=== PATIENT | male | born 1960 | race Caucasian/White ===

== ENCOUNTER 2021-01-09 10:38 | Day surgery (SDC) | payer BC, SELFPAY ==
[2021-01-03 14:20] VITALS: BMI 34.9
--- NOTE | 2021-01-08 12:24 | HO.ANESPROP2 ---
Documented by User: Kortney Oliver 01/08/21 12:24 HPI - Anesthesia Eval Consult details Narrative: 60yo M for Colonoscopy [facility] Past Medical History Medical History (Updated 01/09/21 @ 12:15 by Bela Raymond) COPD (chronic obstructive pulmonary disease) Elevated cholesterol History of diverticulitis History of panic attacks Inverted T wave Mild aortic insufficiency Moderate aortic stenosis by prior echocardiography Murmur Sleep apnea Surgical History Surgical History H/O colonoscopy Hx of inguinal hernia repair Hx of umbilical hernia repair Social History Social History Are you a primary primary health care nurse to a significant other at home: No Do you presently have visiting nurse or other home services: No Smoking Status: Former smoker Smoked in Last 30 Days: No Smoking Quit Date: 2011 Use of substances other than those prescribed or required for medical reasons: No Have you been hit, kicked, punched, or otherwise hurt by someone within the past year? If so, by whom?: No Advance Directives Information Provided: No Recently lost weight without trying: No Meds Allergies Allergy/AdvReac Type Severity Reaction Status Date / Time No Known Allergies Allergy Verified 01/03/21 14:27 Home Medications Medication Instructions Recorded Confirmed Type albuterol sulfate 2 puff PO Q4H PRN 01/03/21 01/03/21 History fluticasone propion-salmeterol 1 puff PO BID 01/03/21 01/03/21 History [Wixela Inhub] paroxetine HCl 1 tab PO DAILY 01/03/21 01/03/21 History simvastatin 40 mg PO DAILY 01/03/21 01/03/21 History testosterone cypionate 1.5 ml IM Q2W 01/03/21 01/03/21 History Exam Exam Date and Time: January 08, 2021 1224 Height,Weight and Vital Signs: Height 5 ft 7 in Weight 101.151 kg Assessment and Plan Assessment Anesthesia Assessment: Chart Reviewed Documented by User: Bela Raymond 01/09/21 12:23 [facility] Past Medical History Medical History (Updated 01/09/21 @ 12:15 by Bela Raymond) COPD (chronic obstructive pulmonary disease) Elevated cholesterol History of diverticulitis History of panic attacks Inverted T wave Mild aortic insufficiency Moderate aortic stenosis by prior echocardiography Murmur Sleep apnea Family History Family history of problems with anesthesia: No Surgical History Surgical History H/O colonoscopy Hx of inguinal hernia repair Hx of umbilical hernia repair History of Problems with Anesthesia: No Social History Social History Are you a primary primary health care nurse to a significant other at home: No Do you presently have visiting nurse or other home services: No Smoking Status: Former smoker Smoked in Last 30 Days: No Smoking Quit Date: 2011 Use of substances other than those prescribed or required for medical reasons: No Have you been hit, kicked, punched, or otherwise hurt by someone within the past year? If so, by whom?: No Advance Directives Information Provided: No Recently lost weight without trying: No Meds Allergies Allergy/AdvReac Type Severity Reaction Status Date / Time No Known Allergies Allergy Verified 01/03/21 14:27 Home Medications Medication Instructions Recorded Confirmed Type albuterol sulfate 2 puff PO Q4H PRN 01/03/21 01/03/21 History fluticasone propion-salmeterol 1 puff PO BID 01/03/21 01/03/21 History [Wix[facility] Inhub] paroxetine HCl 1 tab PO DAILY 01/03/21 01/03/21 History simvastatin 40 mg PO DAILY 01/03/21 01/03/21 History testosterone cypionate 1.5 ml IM Q2W 01/03/21 01/03/21 History Exam Height,Weight and Vital Signs: Vital Signs Temp Pulse Resp BP Pulse Ox 01/09/21 10:57 97.9 F 79 16 184/97 H 96 Pertinent Lab Results Pertinent Lab Results: 12 lead EKG 01/09/2021: NSR70. IRBBB. LAFB. ST and T wave abnormality? anterolateral ischemia Airway Mallampati Class: II TM Dist: >3cm Neck ROM: Full Denture: Upper and Lower Heart: RRR +? systolic murmur Lungs: CTAB Assessment and Plan Assessment Anesthesia Assessment: Anesthesia Plan Discussed and Chart Reviewed Final Anesthetic Review NPO: Yes ASA Class: III Final Preanesthetic Review: No Changes in Pt Med Stat, Meds/Allgs Chart Reviewed, Consent Obtained/Reviewed and Anes Risks/Benef Reviewed Patient Risk: Intermediate Procedure Risk: Low Assessment/Block/Sedation in SS: Assess/Block/Sedation-SS Anesthetic Plan Anesthetic Plan: MAC: Disposition: Standard PACU
[2021-01-09 10:57] VITALS: BP 184/97; PULSE 79; RESP 16; TEMP 36.6; O2SAT 96
--- NOTE | 2021-01-09 11:11 | PC.NURSE ---
I WAS GOING TO GET PATIENTS VITAL SIGNS PATIENT STATED HE HAS A FLIPPED THING ON HIS EKG. APPLIED HEART MONITOR AND PATIENT HAD AN INVERTED T WAVE. NO CP. HE STATED HE WAS AT [facility] FOR THREE DAYS BUT WAS SENT HOME WITH NO PROCEDURES PERFORMED. ABOUT 1 YEAR AGO. PER PATIENT. EKG BEING PERFORMED FOR A BASELINE. MD LANDAVERDE AWARE.
--- NOTE | 2021-01-09 11:17 | ECG_ITS ---
Test Reason : PREOP Blood Pressure : / mmHG Vent. Rate : 070 BPM Atrial Rate : 070 BPM P-R Int : 162 ms QRS Dur : 116 ms QT Int : 414 ms P-R-T Axes : 032 -52 -63 degrees QTc Int : 447 ms Normal sinus rhythm Incomplete right bundle branch block ST & T wave abnormality, consider anterolateral ischemia and infferior ischemia Abnormal ECG No previous ECGs available Referred By: Bela Raymond Electronically Signed By:DEEJAY YUAN
[2021-01-09] MEDS: Lactated Ringers 1,000 ML 100 ML IVCONT (11:21)
--- NOTE | 2021-01-09 12:18 | MHC.SHP ---
Pre-Procedural Eval Section A The patient is an INPATIENT: No Changes since office visit: No Cold of Flu in the past 2 weeks, No New Medical Problems, No Changes in Medication and No Patient answered all questions The History & Physical has been completed within 30 days and I have reviewed it.: Yes Section B Chief Complaint: abdominal pain Allergies: Allergies Allergy/AdvReac Type Severity Reaction Status Date / Time No Known Allergies Allergy Verified 01/03/21 14:27 Plan I have reviewed the history and physical and performed a pertinent physical examination on my patient. No changes have occurred unless specified.
--- NOTE | 2021-01-09 12:51 | PM.OP ---
Brief Operative Note Date of Service: 01/09/21 Pre-op diagnosis: diverticulitis Post-op diagnosis: same (colon polyps) Procedure: colonscopy Surgeon: Yeison Sorto Anesthesia: MAC Estimated blood loss (mL): 0 Pathology: other (polyps cecum, tv colon) Condition: stable Disposition: PACU
[2021-01-09 12:55] VITALS: BP 131/73; PULSE 79; RESP 12; TEMP 37.1; O2SAT 95
[2021-01-09 13:08] VITALS: BP 141/87; PULSE 68; RESP 18; O2SAT 98
[2021-01-09 13:16] VITALS: BP 134/62; PULSE 60; RESP 18; O2SAT 97
--- NOTE | 2021-01-09 13:35 | HO.POSTANES ---
Post Anesthesia Evaluation Post Anesthesia Evaluation Vital Signs: Vital Signs Temp Pulse Resp BP Pulse Ox 01/09/21 13:16 98.7 F 60 18 134/62 97 01/09/21 13:08 68 18 141/87 H 98 01/09/21 12:55 98.7 F 79 12 131/73 95 01/09/21 10:57 97.9 F 79 16 184/97 H 96 Anesthesia: Monitored Mental Status: Awake Pain Control: Satisfactory Nausea/Vomiting: None Hydration: Adequate Anesthesia-Related Issues: No Anes. Related Issues
--- NOTE | 2021-01-09 20:00 | OP_ITS ---
SURGEON: Yeison Sorto MD INDICATIONS: Diverticulitis. PREOPERATIVE DIAGNOSIS: POSTOPERATIVE DIAGNOSIS: PROCEDURE PERFORMED: Colonoscopy to the terminal ileum with snare polypectomy. ESTIMATED BLOOD LOSS: COMPLICATIONS: ANESTHESIA: ASSISTANTS: SPECIMENS: MEDICATIONS: Monitored anesthesia care. DESCRIPTION OF PROCEDURE: History and physical was performed. The risks and benefits of the procedure were explained to the patient. Informed consent was obtained. The patient was placed in the left lateral decubitus position. A digital rectal exam was performed and was found to be normal. The Olympus pediatric video colonoscope was introduced into the rectum and advanced to the cecum without difficulty. The cecum was identified by transillumination, palpation, and identification of ileocecal valve. Examination was performed. The scope was removed. He tolerated the procedure well and was transferred to recovery area in stable condition. FINDINGS: The terminal ileum was briefly examined and appeared normal. The visualized colonic mucosa was normal. The quality of prep was fair with some liquid stool coating the mucosa, which was washed and suctioned. In the cecum, was an 8-mm flat polyp that was removed with a snare and recovered via suction. At the transverse colon distally, was a 10-mm polyp, which was also removed with a snare. No other polyps were identified. Retroflexed examination showed internal hemorrhoids. There was mild sigmoid diverticulosis. IMPRESSION: Colon polyps. RECOMMENDATION: Follow up biopsy results. MD AWILDA Galvin/ERMIAS / [id number]
== END 2021-01-09 13:35 | disposition home or self-care (01) ==
PROVIDERS: Visit Provider Internal Medicine Gastroenterology
PROC: 0DJD8ZZ Inspection of Lower Intestinal Tract, Via Natural or Artificial Opening Endoscopic (ICD-10-PCS; CPT 45378; principal; 2021-01-09 12:10)
DX: R10.9 Unspecified abdominal pain (principal); D12.0 Benign neoplasm of cecum; K63.5 Polyp of colon; K57.30 Diverticulosis of large intestine without perforation or abscess without bleeding; K64.8 Other hemorrhoids; R01.1 Cardiac murmur, unspecified
CPT/HCPCS: 45385; 88305; 93005